=== PATIENT | female | born 1960 | race African-American/Black ===

== ENCOUNTER 2017-02-22 10:21 | Emergency (ER) | payer BC ==
[~2017-02-22] VITALS: Ht 157.5 cm; Wt 80.7 kg
[~2017-02-22 10:21] MED LIST: HYDROCHLOROTHIA25 M1 PO; HYDROXYZINE HCL25 M2 GT; KEFLEX500 MG PO; LOVASTATIN 20 M20 MG PO; MEDROLDOSEPACK PO; MOBIC15 MG PO; PREDNISONE 5 MG5 M1 PO; ZOCOR40 MG PO
[2017-02-22 10:22] VITALS: BP 157/82
[2017-02-22] MEDS ORDERED: HYDROCODONE-AP1 EAC6 PO (10:42)
== END 2017-02-22 11:09 | disposition home or self-care (01) ==
LOC: ER 10:21
DX: G56.02 Carpal tunnel syndrome, left upper limb (principal); I10 Essential (primary) hypertension; Z98.890 Other specified postprocedural states; Z91.013 Allergy to seafood

== ENCOUNTER 2017-04-07 15:32 | Emergency (ER) | payer BC ==
[~2017-04-07] VITALS: Ht 157.5 cm; Wt 78.0 kg
[2017-04-07 15:32] VITALS: BP 121/81
[~2017-04-07 15:32] MED LIST changes: +HYDROCODONE-AP1 EAC6 PO
[2017-04-07] MEDS ORDERED: MOBIC15 MG PO (15:57)
== END 2017-04-07 16:31 | disposition home or self-care (01) ==
LOC: ER 15:32
DX: M65.4 Radial styloid tenosynovitis [de Quervain] (principal); I10 Essential (primary) hypertension; Z90.49 Acquired absence of other specified parts of digestive tract; Z91.013 Allergy to seafood